=== PATIENT | male | born 1955 | race Caucasian/White ===

== ENCOUNTER 2020-04-22 11:57 | Emergency (ER) | payer OTHER ==
[~2020-04-22] VITALS: Ht 177.8 cm; Wt 99.8 kg
[~2020-04-22 11:57] MED LIST: ASPI81CH PO; ATOR40TA PO; Flecainide Ace150 MG PO; HYDCHL12.5 PO; LOSA50 PO; METO25ER PO; Toprol Xl50 MG PO; WARF10 PO; WARF7.5 PO
[2020-04-22 12:29] LABS: BASOPHILS ABSOLUTE AUTO 0.05 K/mm3 (0.00-0.23); BASOPHILS PERCENT AUTO 0 % (0-2); EOSINOPHILS ABSOLUTE AUTO 0.03 K/mm3 (0.00-0.68); EOSINOPHILS PERCENT AUTO 0 % (0-6); Hematocrit 33.4 % (37.0-53.0); Hemoglobin 10.7 g/dL (13.5-17.5); IMMATURE GRAN ABSOLUTE AUTO 0.06 K/mm3 (0.00-0.10); IMMATURE GRAN PERCENT AUTO 1 % (0-1); LYMPHOCYTES ABSOLUTE AUTO 0.62 K/mm3 (0.84-5.20); LYMPHOCYTES PERCENT AUTO 5 % (21-46); MONOCYTES PERCENT AUTO 7 % (4-13); Mean Corpuscular HGB 27.1 pg (26.0-34.0); Mean Corpuscular Volume 85 fL (80-100); Mean Platelet Volume 8.8 fL (9.1-12.4); NEUTROPHILS ABSOLUTE AUTO 10.98 K/mm3 (1.96-9.15); NEUTROPHILS PERCENT AUTO 87 % (41-73); Platelet Count 428 K/mm3 (150-400); RDW Coefficient Variation 13.1 % (11.7-14.2); RDW Standard Deviation 40.2 fL (35.1-46.3); Red Blood Cell Count 3.95 M/mm3 (4.30-5.90); White Blood Cell Count 12.64 K/mm3 (4.00-11.30)
[2020-04-22 12:50] LABS: Albumin, Blood 2.5 g/dL (3.4-5.0); Albumin/Globulin Ratio 0.5 (0.8-1.8); Bilirubin, Total 0.6 mg/dL (0.1-1.0); Bun/Creatinine Ratio 21.1 (12.0-20.0); Creatinine, Blood 1.8 mg/dL (0.60-1.20); Globulin, Blood 5.3 g/dL (2.2-4.0); Potassium, Blood 4.3 mmol/L (3.5-5.5); Total Protein, Blood 7.8 g/dL (6.4-8.2)
[2020-04-22 14:21] LABS: Source, Urine Clean Catch
[2020-04-22 14:23] LABS: Bilirubin, Urine Neg (Neg); Blood, Urine 1+ (Neg); Glucose Qualitative, Urine Neg (Neg); Ketones, Urine Neg (Neg); Leukocyte Esterase, Urine Neg (Neg); Nitrite, Urine Neg (Neg); Protein, Urine 1+ (Neg); Specific Gravity, Urine 1.015 (1.003-1.022); Urobilinogen, Urine NORM (Normal)
[2020-04-22 14:32] LABS: Appearance, Urine Clear (Clear); Color, Urine Yellow (P-Yellow)
[2020-04-22 14:34] LABS: Bacteria Few /hpf; Squamous Epithelial Cells Few /hpf (Few)
[2020-04-22] MEDS ORDERED: Roxicodone5 MG PO (15:14)
== END 2020-04-22 15:40 | disposition home or self-care (01) ==
LOC: ER 11:57
PROVIDERS: Physician Assistant
DX: C22.7 Other specified carcinomas of liver (principal); I48.0 Paroxysmal atrial fibrillation; Z87.891 Personal history of nicotine dependence; Z79.899 Other long term (current) drug therapy; Z79.01 Long term (current) use of anticoagulants
CPT/HCPCS: 71260; 74177; 76705; 80053; 81001; 83690; 85025; 93005; 93010; 96360-59; 99284-25; J7030; Q9967

== ENCOUNTER 2020-05-05 09:33 | Day surgery (SDC) | payer OTHER ==
[~2020-05-05 09:33] MED LIST changes: +Roxicodone5 MG PO
== END 2020-05-05 09:55 | disposition home or self-care (01) ==
LOC: ATC 09:33
DX: R16.0 Hepatomegaly, not elsewhere classified (principal); C20 Malignant neoplasm of rectum; I48.20 Chronic atrial fibrillation, unspecified; C18.9 Malignant neoplasm of colon, unspecified; I10 Essential (primary) hypertension; Z79.01 Long term (current) use of anticoagulants; Z79.899 Other long term (current) drug therapy
CPT/HCPCS: 96372; J3430